=== PATIENT | female | born 1950 | race Caucasian/White ===

== ENCOUNTER 2025-06-21 13:07 | Outpatient (CLI) | payer MEDICARE, SELFPAY | END 2025-06-21 13:08 | disposition home or self-care (01) | LOC: AMB 06-24 11:10 | PROVIDERS: Visit Provider Internal Medicine | DX: R42 Dizziness and giddiness (principal); S09.93XA Unspecified injury of face, initial encounter; W18.30XA Fall on same level, unspecified, initial encounter; Y92.481 Parking lot as the place of occurrence of the external cause | CPT/HCPCS: A0998 ==

== ENCOUNTER 2025-09-10 08:43 | Outpatient (CLI) | payer MEDICARE, SELFPAY | END 2025-09-10 08:44 | disposition home or self-care (01) | LOC: AMB 10-01 09:39 | PROVIDERS: Visit Provider Family Medicine | DX: M54.9 Dorsalgia, unspecified (principal) | CPT/HCPCS: A0425; A0427 ==